=== PATIENT | female | born 1990 | race Caucasian/White ===

== ENCOUNTER 2020-01-23 17:35 | Emergency (ER) | payer OTHER ==
[~2020-01-23] VITALS: Ht 160 cm; Wt 67.6 kg
[~2020-01-23 17:35] MED LIST: XANAX2 MG PO
[2020-01-23 17:44] VITALS: Ht 160 cm; Wt 67.6 kg
[2020-01-23 18:14] VITALS: BP 131/89
== END 2020-01-23 18:14 | disposition home or self-care (01) ==
LOC: ED 17:35
DX: N39.0 Urinary tract infection, site not specified (principal)

== ENCOUNTER 2020-03-15 20:26 | Emergency (ER) | payer OTHER ==
[~2020-03-15] VITALS: Ht 160 cm; Wt 66.7 kg
[2020-03-15 20:38] VITALS: Ht 160 cm; Wt 66.7 kg
[2020-03-15 20:54] LABS: BASOPHIL % 0.5 % (0-2); PLATELET COUNT 280 x10^3mcL (130-400)
[2020-03-15 21:16] LABS: microscopic required? NO
[2020-03-15 21:24] LABS: urine erythrocyte NEGATIVE (NEGATIVE)
[2020-03-16 00:25] VITALS: BP 112/71
== END 2020-03-16 00:25 | disposition home or self-care (01) ==
LOC: ED 20:26
PROVIDERS: Emergency Medicine
DX: O20.0 Threatened abortion (principal); Z3A.01 Less than 8 weeks gestation of pregnancy
CPT/HCPCS: J1460